=== PATIENT | female | born 1965 | race Caucasian/White ===

== ENCOUNTER 2020-02-01 12:48 | Emergency (ER) | payer OTHER, SELFPAY ==
[~2020-02-01] VITALS: Ht 154.9 cm; Wt 74.8 kg
[2020-02-01 12:56] VITALS: BP 128/50
--- NOTE | 2020-02-01 13:04 | NUR ---
EXPOSED TO COVID-19 POSITIVE 1 WK AGO--- FRIENDS TESTED POSITIVE January, PT HUNG OUT WITH THEM JANUARY 15 C/O COUGH BODYACHES, SORETHROAT, HEADACHE---FATIGUE
--- NOTE | 2020-02-01 13:16 | NUR ---
COVID-19 SWAB COLLECTED AND WALKED TO LAB
--- NOTE | 2020-02-01 13:35 | NUR ---
Patient discharged with v/s stable. Written and verbal after care instructions given and explained. Patient alert, oriented and verbalized understanding of instructions. Ambulatory with steady gait. All questions addressed prior to discharge. ID band removed. Patient advised to follow up with PMD. Rx of FLONASE/IBUPROFEN/PROMETHAZINE DM given. Patient educated on indication of medication including possible reaction and side effects. Opportunity to ask questions provided and answered.
[2020-02-01 13:36] VITALS: BP 128/50
== END 2020-02-01 13:35 | disposition home or self-care (01) ==
LOC: MED 12:48 → EEVIPCON 12:48 → MED 13:35
DX: B34.9 Viral infection, unspecified (principal); Z20.828 Contact with and (suspected) exposure to other viral communicable diseases; E78.5 Hyperlipidemia, unspecified; R51 Headache
CPT/HCPCS: 99283; U0003

== ENCOUNTER 2020-05-13 09:26 | Emergency (ER) | payer OTHER, SELFPAY ==
[~2020-05-13] VITALS: Ht 153.7 cm; Wt 77.1 kg
[2020-05-13 09:26] VITALS: BP 124/76
[2020-05-13] MEDS ORDERED: ONDANSETRON 4 MG ODT PO ONE (09:40)
[2020-05-13] MEDS ORDERED: ACETAMINOPHEN EXTRA STRENGTH 500 MG TAB PO ONE (09:40)
[2020-05-13] MEDS ORDERED: IBUPROFEN 600 MG TAB PO ONE (09:40)
--- NOTE | 2020-05-13 09:40 | NUR ---
Patient ambulated to bed 3. RN evaluating patient at bedside.
--- NOTE | 2020-05-13 09:48 | NUR ---
Patient taken to CT scan via wheelchair by tech.
[2020-05-13 09:54] LABS: BASOPHILS # (AUTO) 0.1 K/uL (0.00-0.22); BASOPHILS % (AUTO) 0.8 % (0.0-2.0); EOSINOPHILS # (AUTO) 0.3 K/uL (0-0.4); EOSINOPHILS % (AUTO) 3.4 % (0.0-4.0); HEMATOCRIT 40.1 % (36-48); HEMOGLOBIN 13.6 g/dL (12.0-16.0); LYMPHOCYTES # (AUTO) 1.9 K/uL (2.5-16.5); LYMPHOCYTES % (AUTO) 24.6 % (20.5-51.1); MEAN CORPUSCULAR HEMOGLOBIN 31 pg (27-31); MEAN CORPUSCULAR HGB CONC 34 g/dL (33-37); MEAN CORPUSCULAR VOLUME 91.3 fL (80-94); MONOCYTES # (AUTO) 0.5 K/uL (0.8-1.0); MONOCYTES % (AUTO) 6.9 % (1.7-9.3); NEUTROPHILS % (AUTO) 64.3 % (42.2-75.2); PLATELET COUNT (AUTO) 216 K/uL (140-450); RED BLOOD CELL COUNT(AUTO) 4.39 MIL/uL (4.20-5.40); RED CELL DISTRIBUTION WIDTH 12.6 % (11.6-13.7); WHITE BLOOD COUNT (AUTO) 7.8 K/uL (4.8-10.8)
--- NOTE | 2020-05-13 10:07 | NUR ---
54 Y/O FEMALE PRESENTS TO ER WITH C/O ABDOMINAL PAIN WITH INTERMITTENT CRAMPS X 3HRS. 8/10 PAIN. PT STATES SHE HAD "LEFT OVER CHICKEN LAST NIGHT AND CR[employer] JACKS" FOR DINNER LAST NIGHT, AND BEGAN HAVING INTERMITTENT STOMACH CRAMPS AT 0630 THIS AM. ALSO VOMITTED X 30 MIN BEFORE COMING INTO ER, AND LAST BM WAS AT 0840 AND WAS NORMAL. DENIES ABDOMEN IS TTP, FEVER, DYSURIA, NAUSEA, DIARRHEA, HEADACHE, COUGH, CHILLS. A&OX4, VSS, R/R EQUAL, AND UNLABORED. SIDE RAIL, X1, BED IN LOW POSITION, WILL CONTINUE TO MONITOR. NKDA PMH: HYSTERECTOMY, UTERINE CANCER
[2020-05-13 10:18] LABS: ALBUMIN 3.8 g/dL (3.4-5.0); ANION GAP 12.8 (8-16); CARBON DIOXIDE 27.1 mmol/L (21-32); CREATININE 0.8 mg/dL (0.6-1.3); POTASSIUM 3.9 mmol/L (3.5-5.1); TOTAL BILIRUBIN 0.4 mg/dL (0.0-1.0)
--- NOTE | 2020-05-13 10:40 | NUR ---
Dr. Joseph is evaluating the patient at bedside.
[2020-05-13 10:48] VITALS: BP 124/76
--- NOTE | 2020-05-13 10:49 | NUR ---
Patient discharged with v/s stable. Written and verbal after care instructions given and explained. Patient alert, oriented and verbalized understanding of instructions. Ambulatory with steady gait. All questions addressed prior to discharge. ID band removed. Patient advised to follow up with PMD. Rx of MiraLax powder given. Patient educated on indication of medication including possible reaction and side effects. Opportunity to ask questions provided and answered.
== END 2020-05-13 10:49 | disposition home or self-care (01) ==
LOC: MED 09:26
DX: R10.2 Pelvic and perineal pain (principal); K59.00 Constipation, unspecified; I51.9 Heart disease, unspecified; E78.00 Pure hypercholesterolemia, unspecified
CPT/HCPCS: 36415; 74176; 80053; 83690; 85025; 99284; Q0162